=== PATIENT | female | born 1985 | race Caucasian/White ===

== ENCOUNTER 2020-02-09 17:12 | Emergency (ER) | payer SELFPAY ==
[2020-02-09] VITALS (7 sets, daily range): BP systolic 107–127; BP diastolic 54–92; PULSE 68–81; RESP 16–24; TEMP 36.8; O2SAT 93–97; BMI 31.1
--- NOTE | 2020-02-09 17:23 | XR_ITS ---
WS: [id number] Portable AP upright chest, 02/09/2020 Clinical Data: cp Comparison: Portable chest, 06/16/2018. Findings: No nodules, masses or effusions are seen. The heart is normal. The pulmonary vascularity is not increased. No pneumonia or pneumothorax is seen. There is minimal atelectasis over the surface o f the left diaphragm. XR/XR chest 1V portable [id number] Impression: Negative for acute cardiopulmonary disease.
--- NOTE | 2020-02-09 17:24 | ECG_ITS ---
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 Measurements Intervals [place] Rate: 80 P: 72 MD: 177 QRS: 66 QRSD: 80 T: 50 QT: 382 QTc: 441 Interpretive Statements SINUS RHYTHM No previous ECG available for comparison Electronically Signed On 02-09-2020 21:40:18 CDT by Delma Edwards M.D. [id number]
[2020-02-09 18:57] LABS: Basophils # 0.1 10^3/uL (0.0-0.1); Basophils % 0.6 %; Eosinophils # 0.6 10^3/uL (0.0-0.8); Hematocrit 40.5 % (37.0-47.0); Hemoglobin 13.7 g/dL (11.5-15.3); Lymphocytes # 2.9 10^3/uL (0.8-4.8); Lymphocytes % 25.2 %; Mean Corpuscular HGB Conc 33.8 g/dL (30.0-36.0); Mean Corpuscular Hemoglobin 30.2 pg (28.0-34.0); Mean Corpuscular Volume 89.4 fL (81-99); Mean Platelet Volume 8.6 fL (7.4-10.4); Monocytes # 0.8 10^3/uL (0.2-0.9); Neutrophils # 7.01 10^3/uL (1.8-7.7); Neutrophils % 61.8 %; Nucleated Red Blood Cells % 0 %; Platelet Count 493 10^3/cmm (130-400); Red Blood Count 4.53 10^6/uL (4.1-5.3); Red Cell Distribution Width 12.3 % (12.1-15.1); White Blood Count 11.3 10^3/uL (4.0-10.0)
--- NOTE | 2020-02-09 18:59 | ED_ITS ---
HPI - General Adult General: Chief complaint: General Medical Stated complaint: Pain in lungs/[facility] suspected blood clot Time Seen by Provider: 02/09/20 18:17 Source: patient Mode of arrival: ambulatory Limitations: no limitations History of Present Illness: HPI narrative: Sara is a very nice 34-year-old female who comes in complaining of right back, flank and chest pain. Occasionally she states the pain goes into her lower abdomen. She states it is much worse when she coughs, takes a deep breath or moves in certain positions. She denies anything similar to this in the past. Other than the increased pain with movement she is unaware of any exacerbating or alleviating factors. She did not report trying anything at home such as Tylenol Motrin for the disco mfort. She denies cough or fever. Denies any urinary symptoms such as urinary frequency, urgency or dysuria. She denies having any chest pain at rest but only when she coughs or takes a deep breath or moves but she states it does not take much movement at all to have her pain flare up. Associated symptoms: Reports chest pain; Deny confusion, diaphoresis, dyspnea, headache(s), malaise, nausea, rash, palpitations, syncope or vomiting Review of Systems Const: Denies: fever(s), chills, body aches, fatigue, malaise or diaphoresis Eyes: Denies: change in vision, blurry vision, photophobia, eye discomfort, eye discharge, eye redness or yellow eyes ENMT: Denies: throat pain, odynophagia, hoarseness, swelling of lips/tongue, ear or mastoid pain, ear discharge, change in hearing or nasal discharge Card: Reports: chest pain; Denies: palpitations, irregular heart rhythm, edema, lightheadedness, syncope, pre-syncope, dyspnea on exertion or orthopnea Resp: Denies: dyspnea, productive cough, non-productive cough, wheezing, hemoptysis or chest congestion GI: Reports: abdominal pain; Denies: nausea, vomiting, hematemesis, coffee ground emesis, heartburn, diarrhea, constipation, GI cramping, hematochezia or melena : Denies: flank pain, dysuria, urinary frequency, urinary urgency or hematuria Musc: Denies: neck pain, back pain, extremity pain, extremity swelling, joint pain, joint swelling, joint redness, joint warmth or joint stiffness Skin/Breast: Denies: rash, pruritus, erythema, skin pain or skin tenderness Neuro: Denies: headache(s), numbness in extremities, weakness in extremities, sensory changes, lack of coordination, difficulty walking, dizziness, vertigo, confusion, Slurred speech present or seizure-like activity Bob/Lymph: Denies: easy bruising, easy bleeding, petechiae, purpura or enlar ged lymph nodes All/Imm: Denies: urticaria, throat swelling, tongue swelling, facial swelling or acute wheezing [facility] Female Reproductive History: Date of last menstrual period: 01/22/20 Physical Exam 2 Const: COMMON NORMALS: no acute distress, patient oriented x3, no limitations and alert GENERAL APPEARANCE: cooperative HENMT: COMMON NORMALS: normocephalic, atraumatic, external ears normal, EAC's normal and Normal external nose present HEAD & SCALP: normal to inspection, normocephalic and atraumatic FACE & SINUS: normal facial exam and face symmetric NOSE: Normal external nose present and Normal nares present EXTERNAL EAR: Yes external ears normal EXTERNAL AUDITORY CANAL: EAC's normal MOUTH: Normal oral and palatal mucosa present, lip normal and tongue normal Eye: COMMON NORMALS: Equal, round and reactive pupils present and conjunctivae normal GENERAL EYE: appearance normal, both eyes and all related structures ALIGNMENT: Yes alignment normal PERIORBITAL: periorbital findings normal EYELID: eyelids normal CONJUNCTIVA: Yes conjunctivae normal SCLERA: sclerae normal PUPIL: Yes Equal, round and reactive pupils present Neck/C-Spine: COMMON NORMALS: full ROM, no lymphadenopathy, supple, no meningeal signs and no JVD GENERAL: Yes normal visual inspection and Yes trachea midline Chest: COMMONS NORMALS: normal inspection of the chest and normal palpation of entire chest wall Resp: COMMON NORMALS: normal respiratory effort, No retractions, No use of accessory muscles and clear to auscultation bilaterally EFFORT & INSPECTION: Yes able to speak in complete sentences and Yes symmetric chest movement AUSCULTATION: clear to auscultation bilaterally, no crackles, no rales, no rhonchi and no wheezes Cardio: COMMON NORMALS: no JVD, regular rate, regular rhythm, S1 normal heart sound present and S2 normal heart sound present RATE: regular rate RHYTHM: regular rhythm HEART SOUNDS: S1 normal heart sound present, S2 normal heart sound present, no click, no gallops, no murmurs and no rubs GI: COMMON NORMALS: Soft to palpation and No hepatosplenomegaly present PALPATION: Yes Soft to palpation, Yes Tenderness to palpation present (GI) Det ails: RUQ (Mild without rebound or guarding.), No Guarding due to palpation present (GI), No Rigid due to palpation, Yes No hepatosplenomegaly present, No Hernia present, No Palpable mass present and No Pulsatile mass present : COMMON NORMALS: Yes no CVA tenderness BLADDER/KIDNEY EXAM: Yes no CVA tenderness EXTERNAL FEMALE EXAM: No Hernia present Back/Pelvis: COMMON NORMALS: no CVA tenderness, thoracic and lumbar spine normal to inspection, no thoracic nor lumbar tenderness and thoraco-lumbar ROM normal Extremity: COMMON NORMALS: normal to inspection, full ROM, capillary refill normal, no joint enlargement, no clubbing, cyanosis or edema and no calf tenderness Neuro: COMMON NORMALS: patient oriented x3, CN's II-XII intact bilaterally, moves all extremities, no focal motor deficits and no sensory deficits noted SENSORIUM/ORIENTATION: Yes alert MENINGEAL SIGNS: Yes no meningeal signs SPEECH: speech normal Psych: COMMON NORMALS: mental status grossly normal, Normal thought process present, cooperative, normal affect, speech normal and activity/motor behavior normal SPEECH: Yes normal speech THOUGHT PROCESS: Normal thought process present Skin: COMMON NORMALS: no rashes or lesions noted, turgor normal, no jaundice, no petechiae and no mottling GENERAL SKIN EXAM: no rashes or lesions noted and turgor normal Course Vital Signs: Vital signs: Vital Signs Temperature 98.2 F 02/09/20 17:18 Pulse Rate 79 02/09/20 23:10 Respiratory Rate 20 H 02/09/20 23:10 Blood Pressure 107/54 02/09/20 23:10 Pulse Oximetry 93 02/09/20 20:18 MDM - General Adult 2 MDM Narrative: Medical decision making narrative: 2208 -Sara is feeling better and would like to go home. She does not want to stay for the repeat troponin test to rule out acute coronary syndrome. Clinically this appears unlikely as the patient only has sharp intermittent pain with coughing or deep breathing or when she moves. With a nurse to technical sales support specialist me I evaluate the patient's chest I see no evidence of shingles lesions. CT scan shows possible pneumonitis but the patient is a rapid COVID negative. I will place her on covert precautions and send a more specific PTC test. Patient understands to keep her self quarantine until the results of this test. I will treat her with Zithromax and Omnicef for community-acquired pneumonia but the patient is aware that this could be viral and she may need to return if worse. Lab Data: Attestation: I reviewed the patient's lab results. Labs: Lab Results 02/09/20 02/09/20 02/09/20 Range/Units 18:32 18:32 18:32 WBC 11.3 H (4.0-10.0) 10^3/ uL RBC 4.53 (4.1-5.3) 10^6/u L Hgb 13.7 (11.5-15.3) g/dL Hct 40.5 (37.0-47.0) % MCV 89.4 (81-99) fL MCH 30.2 (28.0-34.0) pg MCHC 33.8 (30.0-36.0) g/dL RDW 12.3 (12.1-15.1) % Plt Count 493 H (130-400) 10^3/c mm MPV 8.6 (7.4-10.4) fL Neut % (Auto) 61.8 % Lymph % (Auto) 25.2 % [place] % (Auto) 7.0 % Eos % (Auto) 5.0 % Baso % (Auto) 0.6 % Neut # (Auto) 7.01 (1.8-7.7) 10^3/u L Lymph # (Auto) 2.9 (0.8-4.8) 10^3/u L [place] # (Auto) 0.8 (0.2-0.9) 10^3/u L Eos # (Auto) 0.6 (0.0-0.8) 10^3/u L Baso # (Auto) 0.1 (0.0-0.1) 10^3/u L Nucleated RBC % (a uto) 0 % Nucleated RBCs # 0.0 /100WBC D-Dimer <= 0.27 (0-0.59) ug/mIFE U Sodium 136 (136-145) mmol/L Potassium 3.9 (3.5-5.1) mmol/L Chloride 101 (98-107) mmol/L Carbon Dioxide 24 (22-29) mmol/L Anion Gap 14.9 (5-19) BUN 5 L (6-20) mg/dL Creatinine 0.5 (0.5-0.9) mg/dL GFR Calculation 141.2 H (90-130) mL/min Glucose 90 (65-115) mg/dL Calculated Osmolal ity 279 L (285-295) mOsm/k g Calcium 9.4 (8.5-10.5) mg/dL Total Bilirubin 0.3 (0.15-1.2) mg/dL AST 18 (0-32) U/L ALT 17 (0-33) U/L Alkaline Phosphata se 85 (35-105) IU/L Troponin T Baselin e (0-10) ng/L Troponin T [address] [place] (0-10) ng/L Delta Troponin T (0-10) ABS# NT-Pro-B Natriuret Pep 43 (0-125) pg/mL Total Protein 6.5 L (6.6-8.7) g/dL Albumin 4.1 (3.5-5.2) g/dL Globulin 2.4 (1.3-4.6) g/dL HCG, Qual (Negative) Urine Color (Yellow) Urine Appearance (CLEAR) Urine pH (5-7) Ur Specific Gravit y (1.005-1.030) Urine Protein (Negative) Urine Glucose (UA) (Normal) Urine Ketones (Negative) Urine Blood (Negative) Urine Nitrate (Negative) Urine Bilirubin (Negative) Urine Urobilinogen (Negative) mg/dL Ur Leukocyte Cherry ase (Negative) Influenza Type A A g (Negative) Influenza Type B A g (Negative) SARS-CoV-2 Ag (Rap id) (Negative) 02/09/20 02/09/20 02/09/20 Range/Units 18:32 18:32 20:40 WBC (4.0-10.0) 10^3/ uL RBC (4.1-5.3) 10^6/u L Hgb (11.5-15.3) g/dL Hct (37.0-47.0) % MCV (81-99) fL MCH (28.0-34.0) pg MCHC (30.0-36.0) g/dL RDW (12.1-15.1) % Plt Count (130-400) 10^3/c mm MPV (7.4-10.4) fL Neut % (Auto) % Lymph % (Auto) % [place] % (Auto) % Eos % (Auto) % Baso % (Auto) % Neut # (Auto) (1.8-7.7) 10^3/u L Lymph # (Auto) (0.8-4.8) 10^3/u L [place] # (Auto) (0.2-0.9) 10^3/u L Eos # (Auto) (0.0-0.8) 10^3/u L Baso # (Auto) (0.0-0.1) 10^3/u L Nucleated RBC % (a uto) % Nucleated RBCs # /100WBC D-Dimer (0-0.59) ug/mIFE U Sodium (136-145) mmol/L Potassium (3.5-5.1) mmol/L Chloride (98-107) mmol/L Carbon Dioxide (22-29) mmol/L Anion Gap (5-19) BUN (6-20) mg/dL Creatinine (0.5-0.9) mg/dL GFR Calculation (90-130) mL/min Glucose (65-115) mg/dL Calculated Osmolal ity (285-295) mOsm/k g Calcium (8.5-10.5) mg/dL Total Bilirubin (0.15-1.2) mg/dL AST (0-32) U/L ALT (0-33) U/L Alkaline Phosphata se (35-105) IU/L Troponin T Baselin e 6 (0-10) ng/L Troponin T [address] [place] 6.00 (0-10) ng/L Delta Troponin T 0 (0-10) ABS# NT-Pro-B Natriuret Pep (0-125) pg/mL Total Protein (6.6-8.7) g/dL Albumin (3.5-5.2) g/dL Globulin (1.3-4.6) g/dL HCG, Qual Negative (Negative) Urine Color (Yellow) Urine Appearance (CLEAR) Urine pH (5-7) Ur Specific Gravit y (1.005-1.030) Urine Protein (Negative) Urine Glucose (UA) (Normal) Urine Ketones (Negative) Urine Blood (Negative) Urine Nitrate (Negative) Urine Bilirubin (Negative) Urine Urobilinogen (Negative) mg/dL Ur Leukocyte Cherry ase (Negative) Influenza Type A A g (Negative) Influenza Type B A g (Negative) SARS-CoV-2 Ag (Rap id) (Negative) 02/09/20 02/09/20 02/09/20 Range/Units 20:47 21:18 21:18 WBC (4.0-10.0) 10^3/ uL RBC (4.1-5.3) 10^6/u L Hgb (11.5-15.3) g/dL Hct (37.0-47.0) % MCV (81-99) fL MCH (28.0-34.0) pg MCHC (30.0-36.0) g/dL RDW (12.1-15.1) % Plt Count (130-400) 10^3/c mm MPV (7.4-10.4) fL Neut % (Auto) % Lymph % (Auto) % [place] % (Auto) % Eos % (Auto) % Baso % (Auto) % Neut # (Auto) (1.8-7.7) 10^3/u L Lymph # (Auto) (0.8-4.8) 10^3/u L [place] # (Auto) (0.2-0.9) 10^3/u L Eos # (Auto) (0.0-0.8) 10^3/u L Baso # (Auto) (0.0-0.1) 10^3/u L Nucleated RBC % (a uto) % Nucleated RBCs # /100WBC D-Dimer (0-0.59) ug/mIFE U Sodium (136-145) mmol/L Potassium (3.5-5.1) mmol/L Chloride (98-107) mmol/L Carbon Dioxide (22-29) mmol/L Anion Gap (5-19) BUN (6-20) mg/dL Creatinine (0.5-0.9) mg/dL GFR Calculation (90-130) mL/min Glucose (65-115) mg/dL Calculated Osmolal ity (285-295) mOsm/k g Calcium (8.5-10.5) mg/dL Total Bilirubin (0.15-1.2) mg/dL AST (0-32) U/L ALT (0-33) U/L Alkaline Phosphata se (35-105) IU/L Troponin T Baselin e (0-10) ng/L Troponin T [address] [place] (0-10) ng/L Delta Troponin T (0-10) ABS# NT-Pro-B Natriuret Pep (0-125) pg/mL Total Protein (6.6-8.7) g/dL Albumin (3.5-5.2) g/dL Globulin (1.3-4.6) g/dL HCG, Qual (Negative) Urine Color Yellow (Yellow) Urine Appearance Clear (CLEAR) Urine pH 6 (5-7) Ur Specific Gravit y 1.010 (1.005-1.030) Urine Protein Neg (Negative) Urine Glucose (UA) Norm (Normal) Urine Ketones Negative (Negative) Urine Blood Neg (Negative) Urine Nitrate Negative (Negative) Urine Bilirubin Neg (Negative) Urine Urobilinogen Norm (Negative) mg/dL Ur Leukocyte Cherry ase Negative (Negative) Influenza Type A A g Negative (Negative) Influenza Type B A g Negative (Negative) SARS-CoV-2 Ag (Rap id) Negative (Negative) Imaging Data^: CXR: Attestation: I personally reviewed and interpreted this imaging study as follows: My impression: No acute cardiopulmonary findings. CTA Chest With Abdomen Pelvis: Radiologist's impression: [place] [address] CT Scan Report Signed Patient: Sara Schafer Unit #: [id number] : 1985 Age/Sex: 34 / F ADM Date: 02/09/20 Loc: ER Room/Bed: Attending Dr: Ordering Provider/Ordering MD: Randee Moss DO Date of Service: 02/09/20 Procedure(s): CT angio chest w abd pel w con Accession Number(s): [id number] Report Number: [id number] PROCEDURE INFORMATION: Exam: CT Angiography Chest With Contrast Exam date and time: 02/09/2020 7:19 PM Age: 34 years old Clinical indication: Nausea and vomiting; Abdominal pain; Angina; Chest pain TECHNIQUE: Imaging protocol: Computed tomographic angiography of the chest with intravenous contrast. 3D rendering (Not supervised by radiologist): MIP and/or 3D reconstructed images were created by the technologist. Radiation optimization: All CT scans at this facility use at least one of these dose optimization techniques: automated exposure control; mA and/or kV adjustment per patient size (includes targeted exams where dose is matched to clinical indication); or iterative reconstruction. Contrast material: OMNI 350; Contrast volume: 95 ml; Contrast route: INTRAVENOUS (IV); COMPARISON: CR XR chest 1V portable [id number] 02/09/2020 5:26 PM RADIATION DOSE METRICS: Total DLP (mGy-cm): 1765.81 FINDINGS: Pulmonary arteries: There is no pulmonary embolus. Aorta: Unremarkable. No aortic aneurysm. No aortic dissection. Lungs: There is mild ground-glass opacity in the dependent portion of the lungs compatible with mild pneumonitis versus atelectasis. There is a 3 mm nodule posterior right lung image 18. There is a 3 mm subpleural nodule left lung image 18. Pleural space: Unremarkable. No pneumothorax. No pleural effusion. Heart: Unremarkable. No cardiomegaly. No pericardial effusion. Lymph nodes: There is right axillary adenopathy with a lymph node measuring 1.3 cm in short axis image 76. There is mediastinal adenopathy including a right paratracheal lymph node measuring 1.3 cm in short axis image 158. There is a subcarinal lymph node measuring 1.3 cm in short axis. There is a right hilar lymph node measuring 1.5 cm in short axis image 206. There is a left hilar lymph node measuring 1.2 cm in short axis image 190. Bones/joints: Unremarkable. No acute fracture. Soft tissues: There is a 7 mm soft tissue nodule posterior left upper lobe image 11. IMPRESSION: 1. There is no pulmonary embolus. 2. Mediastinal, hilar and right axillary adenopathy is noted. 3. There is mild ground-glass opacity in the dependent portion of the lungs compatible with mild pneumonitis versus atelectasis. 4. Multiple soft tissue pulmonary nodules are noted measuring up to 7 mm in size.If the patient does not have known cancer, follow up should be based on clinical information because of the low risk of cancer in this age group. (Reference: Maria) REFERENCES: ludivina Bedolla al. Guidelines for Management of Incidental Pulmonary Nodules Detected on CT Images: From the Fleischner Society 2017. Radiology. 2017;284(1):228-243. PROCEDURE INFORMATION: Exam: CT Abdomen And Pelvis With Contrast Exam date and time: 02/09/2020 7:19 PM Age: 34 years old Clinical indication: Nausea and vomiting; Abdominal pain; Angina; Chest pain TECHNIQUE: Imaging protocol: Computed tomography of the abdomen and pelvis with intravenous contrast. Radiation optimization: All CT scans at this facility use at least one of these dose optimization techniques: automated exposure control; mA and/or kV adjustment per patient size (includes targeted exams where dose is matched to clinical indication); or iterative reconstruction. Contrast material: OMNI 350; Contrast volume: 95 ml; Contrast route: INTRAVENOUS (IV); COMPARISON: CR XR chest 1V portable [id number] 02/09/2020 5:26 PM RADIATION DOSE METRICS: Total DLP (mGy-cm): 1765.81 FINDINGS: Liver: Unremarkable.No mass. Gallbladder and bile ducts: Normal. No calcified stones. No ductal dilation. Pancreas: Normal. No ductal dilation. Spleen: Normal. No splenomegaly. Adrenals: Normal. No mass. Kidneys and ureters: Normal. No hydronephrosis. Stomach and bowel: Unremarkable. No obstruction. No mucosal thickening. Appendix: No evidence of appendicitis. Intraperitoneal space: Unremarkable. No free air. No significant fluid collection. Vasculature: Unremarkable.No abdominal aortic aneurysm. Subcentimeter lymph nodes are noted. Lymph nodes: Unremarkable.No enlarged lymph nodes. Urinary bladder: Unremarkable as visualized. Reproductive: Unremarkable as visualized. Bones/joints: Unremarkable. No acute fracture. Soft tissues: Unremarkable. CT/CT angio chest w abd pel w con IMPRESSION: No acute findings. Radiation Dose CTDIVOL = (mGy): DLP = 1765.81 1765.81 (mGy-cm) Dictated By: Itzel Easley Signed By: Itzel Easley Signed Date/Time: 02/09/202106 DD/ 05 EKG Data^: EKG 1: Attestation: I personally reviewed and interpreted this EKG as follows: EKG interpretation date: 02/09/20 EKG interpretation time: 19:17 Interpretation: Normal sinus rhythm at 80 beats a minute, no blocks, normal intervals, nonspecific ST-T wave changes. Computer generated interpretation: Chest/Abdomen/Pelvis CT 02/09/20 19:10 IMPRESSION: No acute findings. Radiation Dose CTDIVOL = (mGy): DLP = 1765.81~1765.81 (mGy-cm) EKG 2: Attestation: I personally reviewed and interpreted this EKG as follows: EKG interpretation date: 02/09/20 EKG interpretation time: 21:14 Interpretation: Normal sinus rhythm at 60 beats a minute, no blocks, normal intervals, no acute ST-T wave changes. Computer generated interpretation: Chest/Abdomen/Pelvis CT 02/09/20 19:10 IMPRESSION: No acute findings. Radiation Dose CTDIVOL = (mGy): DLP = 1765.81~1765.81 (mGy-cm) Discharge Plan Discharge Patient Disposition: Home Clinical Impression: Pleurisy Pneumonia Qualifiers: Pneumonia type: due to unspecified organism Laterality: bilateral Lung location: lower lobe of lung Qualified Code(s): J18.9 - Pneumonia, unspecified organism Condition: Stable Prescriptions: New Zithromax Z-Garrick 250 mg tablet See Rx Instructions .ROUTE .COMPLEX Qty: 6 RF: 0 Erie 5-325 mg tablet 1 tab PO Q6H PRN (Reason: pain) 5 Days Qty: 10 RF: 0 Tessalon Perles 100 mg capsule 200 mg PO TID PRN (Reason: cough) Qty: 60 RF: 0 cefdinir 300 mg capsule 300 mg PO Q12H 10 Days Qty: 20 RF: 0 Discharge Orders: Discharge Order (Routine); Ordered 02/09/20 Ordered By: Randee Moss Referrals: Jailene Gaviria FNP [Primary Care Provider] - 1-3 days Discharge Diet: Advance as tolerated Discharge Activity: Increase activity as tolerated Patient Instructions: Pleurisy (ED), Viral Pneumonia (ED), Bacterial Pneumonia (ED), Pneumonia (ED) Activity Restrictions/Additional Instructions: Please return to the ER immediately for any of the signs or symptoms listed on your discharge instruction sheets, worsening/changing of your symptoms, you are not getting better as quickly as expected, or for ANY other cause or concerns. You have declined to stay for the further evaluation and care of a possible heart problem. Of course any heart problem can be life-threatening so if you change your mind or your symptoms change or worsen in any way please return to the ER for recheck. Take your antibiotics as I have prescribed and we have sent a second COVID test so keep at home and quarantined until you are called with th e results of this test. 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
[2020-02-09] MEDS: morphine 4 mg/mL SDV 1 mL IVP (19:10)
--- NOTE | 2020-02-09 19:10 | CTR_ITS ---
PROCEDURE INFORMATION: Exam: CT Angiography Chest With Contrast Exam date and time: 02/09/2020 7:19 PM Age: 34 years old Clinical indication: Nausea and vomiting; Abdominal pain; Angina; Chest pain TECHNIQUE: Imaging protocol: Computed tomographic angiography of the chest with intravenous contrast. 3D rendering (Not supervised by radiologist): MIP and/or 3D reconstructed images were created by the technologist. Radiation optimization: All CT scans at this facility use at least one of these dose optimization techniques: automated exposure control; mA and/or kV adjustment per patient size (includes targeted exams where dose is matched to clinical indication); or iterative reconstruction. Contrast material: OMNI 350; Contrast volume: 95 ml; Contrast route: INTRAVENOUS (IV); COMPARISON: CR XR chest 1V portable [id number] 02/09/2020 5:26 PM RADIATION DOSE METRICS: Total DLP (mGy-cm): 1765.81 FINDINGS: Pulmonary arteries: There is no pulmonary embolus. Aorta: Unremarkable. No aortic aneurysm. No aortic dissection. Lungs: There is mild ground-glass opacity in the dependent portion of the lungs compatible with mild pneumonitis versus atelectasis. There is a 3 mm nodule posterior right lung image 18. There is a 3 mm subpleural nodule left lung image 18. Pleural space: Unremarkable. No pneumothorax. No pleural effusion. Heart: Unremarkable. No cardiomegaly. No pericardial effusion. Lymph nodes: There is right axillary adenopathy with a lymph node measuring 1.3 cm in short axis image 76. There is mediastinal adenopathy including a right paratracheal lymph node measuring 1.3 cm in short axis image 158. There is a subcarinal lymph node measuring 1.3 cm in short axis. There is a right hilar lymph node measuring 1.5 cm in short axis image 206. There is a left hilar lymph node measuring 1.2 cm in short axis image 190. Bones/joints: Unremarkable. No acute fracture. Soft tissues: There is a 7 mm soft tissue nodule posterior left upper lobe image 11. IMPRESSION: 1. There is no pulmonary embolus. 2. Mediastinal, hilar and right axillary adenopathy is noted. 3. There is mild ground-glass opacity in the dependent portion of the lungs compatible with mild pneumonitis versus atelectasis. 4. Multiple soft tissue pulmonary nodules are noted measuring up to 7 mm in size.If the patient does not have known cancer, follow up should be based on clinical information because of the low risk of cancer in this age group. (Reference: Maria) REFERENCES: ludivina Bedolla al. Guidelines for Management of Incidental Pulmonary Nodules Detected on CT Images: From the Fleischner Society 2017. Radiology. 2017;284(1):228-243. PROCEDURE INFORMATION: Exam: CT Abdomen And Pelvis With Contrast Exam date and time: 02/09/2020 7:19 PM Age: 34 years old Clinical indication: Nausea and vomiting; Abdominal pain; Angina; Chest pain TECHNIQUE: Imaging protocol: Computed tomography of the abdomen and pelvis with intravenous contrast. Radiation optimization: All CT scans at this facility use at least one of these dose optimization techniques: automated exposure control; mA and/or kV adjustment per patient size (includes targeted exams where dose is matched to clinical indication); or iterative reconstruction. Contrast material: OMNI 350; Contrast volume: 95 ml; Contrast route: INTRAVENOUS (IV); COMPARISON: CR XR chest 1V portable [id number] 02/09/2020 5:26 PM RADIATION DOSE METRICS: Total DLP (mGy-cm): 1765.81 FINDINGS: Liver: Unremarkable.No mass. Gallbladder and bile ducts: Normal. No calcified stones. No ductal dilation. Pancreas: Normal. No ductal dilation. Spleen: Normal. No splenomegaly. Adrenals: Normal. No mass. Kidneys and ureters: Normal. No hydronephrosis. Stomach and bowel: Unremarkable. No obstruction. No mucosal thickening. Appendix: No evidence of appendicitis. Intraperitoneal space: Unremarkable. No free air. No significant fluid collection. Vasculature: Unremarkable.No abdominal aortic aneurysm. Subcentimeter lymph nodes are noted. Lymph nodes: Unremarkable.No enlarged lymph nodes. Urinary bladder: Unremarkable as visualized. Reproductive: Unremarkable as visualized. Bones/joints: Unremarkable. No acute fracture. Soft tissues: Unremarkable. CT/CT angio chest w abd pel w con IMPRESSION: No acute findings. Radiation Dose CTDIVOL = (mGy): DLP = 1765.81~1765.81 (mGy-cm)
[2020-02-09] MEDS: ondansetron 2 mg/ML SDV 2 mL 4 MG IVP (19:11)
[2020-02-09] MEDS: sodium chloride 0.9% 1,000 ML 999 ML IV (19:11)
--- NOTE | 2020-02-09 19:24 | ECG_ITS ---
[facility] Test Date: 2020-02-09 Pat Name: Sara Schafer Department: Room: Gender: Female Letterer: : 1985 Requested By: Barbara Morel Order Number: [id number] Kade MD: Delma Edwards M.D. Measurements Intervals [place] Rate: 60 P: 56 MA: 174 QRS: 64 QRSD: 89 T: 52 QT: 431 QTc: 431 Interpretive Statements SINUS RHYTHM Compared to ECG 02/09/2020 19:17:02 No significant changes Electronically Signed On 02-09-2020 21:44:47 CDT by Delma Edwards M.D. [id number]
[2020-02-09 19:25] LABS: D Dimer <= 0.27 ug/mIFEU (0-0.59)
[2020-02-09 19:29] LABS: HCG, Serum Qual Negative (Negative)
[2020-02-09 19:34] LABS: Troponin(5th) Baseline 6 ng/L (0-10)
[2020-02-09 19:42] LABS: Alanine Aminotransferase 17 U/L (0-33); Albumin Level 4.1 g/dL (3.5-5.2); Alkaline Phosphatase 85 IU/L (35-105); Anion Gap 14.9 (5-19); Aspartate Amino Transferase 18 U/L (0-32); Blood Urea Nitrogen 5 mg/dL (6-20); Calcium 9.4 mg/dL (8.5-10.5); Carbon Dioxide 24 mmol/L (22-29); Chloride 101 mmol/L (98-107); Globulin 2.4 g/dL (1.3-4.6); Glomerular Filtration Rate 141.2 mL/min (90-130); Glucose 90 mg/dL (65-115); NT Pro B Type Natriuretic Pept 43 pg/mL (0-125); Osmolality Calculated 279 mOsm/kg (285-295); Potassium 3.9 mmol/L (3.5-5.1); Sodium 136 mmol/L (136-145); Total Bilirubin 0.3 mg/dL (0.15-1.2); Total Protein 6.5 g/dL (6.6-8.7)
[2020-02-09] MEDS: HYDROmorphone 1 mg/mL INJ 1 mL IVP (20:03)
[2020-02-09] MEDS: iohexol 350 mg/mL 100 mL Btl IV (20:31)
[2020-02-09 21:05] LABS: Troponin 5 2HR Delta 0 ABS# (0-10)
[2020-02-09 21:09] LABS: Add Urine Microscopic? NO
[2020-02-09 21:19] LABS: Bilirubin Urine Neg (Negative); Blood Urine Neg (Negative); Glucose Urine UA Norm (Normal); Ketones Urine Negative (Negative); Leukocyte Esterase Urine Negative (Negative); Nitrate Urine Negative (Negative); Protein Urine Neg (Negative); Urine Appearance Clear (CLEAR); Urine Color Yellow (Yellow); Urobilinogen Urine Norm (Negative); pH Urine 6 (5-7)
[2020-02-09 21:49] LABS: Influenza A by IFA Negative (Negative); Influenza B by IFA Negative (Negative)
[2020-02-09 22:05] LABS: SARS Covid-2 Antigen Negative (Negative)
[2020-02-09] MEDS: cefTRIAXone 1,000 MG in sodium chloride 0.9% (plus) 50 ML 100 MG IV (22:30)
[2020-02-09] MEDS: azithromycin 250 mg Tablet 500 MG PO (22:31)
[2020-02-09] MEDS: HYDROcodone-acetaminophen 5-325 mg Tablet 1 TAB PO (23:09)
[2020-02-11 16:07] LABS: Coronavirus Lab Test PTC Negative
--- NOTE | 2020-02-11 16:26 | PC.NURSE ---
Pt called and notified of negative COVID result.
== END 2020-02-09 23:17 | disposition home or self-care (01) ==
PROVIDERS: Emergency Medicine; Emergency Provider Emergency Medicine; PCP Nurse Practitioner Family
DX: J18.9 Pneumonia, unspecified organism (principal); R09.1 Pleurisy
CPT/HCPCS: 12345; 71045; 71275; 74177; 80053; 81003; 83880; 84484; 84703; 85025; 85378; 87426; 87635; 87804; 93005; 96365; 96375; 99283; 99284; J0131; J0696; J1170; J2270; J2405; J7030; Q0144; Q9967

== ENCOUNTER 2020-04-20 18:59 | Emergency (ER) | payer MEDICAID, SELFPAY ==
[2020-04-20 19:02] VITALS: BP 158/108; PULSE 79; RESP 16; TEMP 36.9; O2SAT 99; BMI 31.3
[2020-04-20 19:06] VITALS: BP 154/106; RESP 18; O2SAT 98
--- NOTE | 2020-04-20 19:30 | ED_ITS ---
HPI - Extremity Problem General: Chief complaint: Extremity Injury, Upper Stated complaint: knot/pain/swelling in left wrist Time Seen by Provider: 04/20/20 19:19 History of Present Illness: HPI Narrative: Patient planes about right wrist pain that radiates her arm and also numbness in her fingers. 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 Denies any injury. 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) Review of Systems Const: Denies: fever(s) or chills Musc: Reports: extremity pain (Right hand going up right arm left wrist hurts); Denies: limited range of motion Psych: Denies: anxiety or depression PFSH ED PFSH: Family History Other Cancer Diabetes Hyperlipidemia Social History (Updated 04/20/20 @ 16:05 by Flakita Roy LPN) Smoking and tobacco status: current every day smoker Alcohol intake: never Adopted: No Female Reproductive History: Date of last menstrual period: 04/17/20 Physical Exam Const: COMMON NORMALS: no acute distress Neuro: SENSORY EXAM: Yes other (Positive Phalen's and Tinel sign right wrist) Psych: COMMON NORMALS: mental status grossly normal Course Vital Signs: Vital signs: Vital Signs Temperature 98.4 F 04/20/20 19:02 Pulse Rate 79 04/20/20 19:02 Respiratory Rate 16 04/20/20 19:02 Blood Pressure 158/108 04/20/20 19:02 Pulse Oximetry 99 04/20/20 19:02 Discharge Plan Discharge Patient Disposition: Home Clinical Impression: Acute carpal tunnel syndrome of right wrist Condition: Stable Prescriptions: New Medrol (Garrick) 4 mg tablets,dose pack See Rx Instructions .ROUTE .COMPLEX Qty: 21 RF: 0 Voltaren 1 % gel 4 g topical QID Qty: 100 RF: 0 Discharge Orders: Discharge ED (Routine); Ordered 04/20/20 Ordered By: García Bryan Referrals: Jailene Gaviria FNP [Primary Care Provider] - Discharge Diet: Usual diet Discharge Activity: Increase activity as tolerated Patient Instructions: Carpal Tunnel Syndrome (ED) Activity Restrictions/Additional Instructions: Follow-up with medical provider as directed. Take medications as prescribed. Return to the ER or your medical provider if condition worsens. Please read and understand discharge instructions. If any questions ask please. Wear splints at night especially and possibly work. He can pick the splints up at local retail or like [employer] or [employer]. Coding Level of Care Code ED Federal Mediator for Ann Vanessa
[2020-04-20] MEDS: ketorolac 60 mg/2 mL INJ IM (19:51)
[2020-04-20] MEDS: methylPREDNISolone (DEPO) 80 MG/ML INJ 1 mL IM (19:55)
[2020-04-20 20:19] VITALS: BP 156/101; PULSE 64; RESP 18; O2SAT 98
[2020-04-20 20:24] VITALS: PULSE 89
--- NOTE | 2020-04-20 20:24 | PC.NURSE ---
no change after Injections
== END 2020-04-20 20:19 | disposition home or self-care (01) ==
PROVIDERS: Emergency Provider Nurse Practitioner Family; PCP Nurse Practitioner Family
DX: G56.01 Carpal tunnel syndrome, right upper limb (principal); F17.210 Nicotine dependence, cigarettes, uncomplicated
CPT/HCPCS: 12345; 96372; 99281; 99283; J1040; J1885

== ENCOUNTER 2020-05-02 16:28 | Emergency (ER) | payer MEDICAID, SELFPAY ==
[2020-05-02 16:40] VITALS: BP 146/80; PULSE 84; RESP 16; TEMP 36.2; O2SAT 99; BMI 32.3
[2020-05-02 16:44] VITALS: BP 133/59; PULSE 98; RESP 16; TEMP 36.8; O2SAT 99
--- NOTE | 2020-05-02 17:39 | XR_ITS ---
WS: [id number] Exam: XR wrist RT min 3V* [id number] Date/Time of Exam: 05/02/2020 5:44 PM Reason For Exam: pain There are no fractures, soft tissue swelling, or unusual calcifications. The wrist shows normal bony alignment. There is no irregularity of the bony architecture. XR/XR wrist RT min 3V* [id number] IMPRESSION: Negative right wrist.
--- NOTE | 2020-05-02 17:47 | W.ED.EXTPRO ---
HPI - Extremity Problem General: Chief complaint: Extremity Problem,Nontraumatic Stated complaint: R hand pain Time Seen by Provider: 05/02/20 17:23 History of Present Illness: HPI Narrative: Patient sent here today by Dr. Arboleda's office for neurological testing for carpal tunnel syndrome. Said she saw Dr. Arboleda today he said come here. States that her hand continues to bother complains redness to the top of her hand is wearing a copper fit brace on her wrist. MD Complaint: extremity pain Onset (ago): week(s) Pain Consistency: constant Location: right Quality: aching Radiation: none Relieving factors: nothing Exacerbating factors: range of motion Associated symptoms: Reports no associated symptoms; Deny chest pain, fever(s) or rash Review of Systems Const: Denies: fever(s), chills or body aches Eyes: Denies: change in vision or blurry vision ENMT: Denies: throat pain or nasal congestion Card: Denies: chest pain or dyspnea on exertion Resp: Denies: dyspnea, productive cough or non-productive cough GI: Denies: abdominal pain, nausea or vomiting Musc: Reports: extremity pain Skin/Breast: Denies: rash Neuro: Denies: headache(s) Psych: Denies: anxiety or depression Bob/Lymph: Denies: easy bruising PFSH ED PFSH: Family History Other Cancer Diabetes Hyperlipidemia Social History (Updated 05/02/20 @ 16:44 by Cortez Landin RN) Smoking and tobacco status: current every day smoker cigarettes Packs smoked per day: 1 Alcohol intake: never Substance/Drug Use: current Substance/Drug use frequency: Special occassions/opportunity only Substance/Drug use type: Marijuana Adopted: No Female Reproductive History: Date of last menstrual period: 04/11/20 Physical Exam Const: COMMON NORMALS: no acute distress, average body habitus and patient oriented x3 HENMT: COMMON NORMALS: normocephalic HEAD & SCALP: normal to inspection and normocephalic FACE & SINUS: normal facial exam Eye: COMMON NORMALS: conjunctivae normal GENERAL EYE: appearance normal, both eyes and all related structures CONJUNCTIVA: Yes conjunctivae normal Neck/C-Spine: COMMON NORMALS: no JVD Chest: COMMONS NORMALS: normal inspection of the chest Resp: COMMON NORMALS: normal respiratory effort Cardio: COMMON NORMALS: no JVD, regular rate and regular rhythm RATE: regular rate RHYTHM: regular rhythm Extremity: COMMON NORMALS: normal to inspection and full ROM RIGHT UPPER EXTREMITY: Yes wrist (Tenderness right wrist positive Karina she does have redness to the dorsa) Neuro: COMMON NORMALS: patient oriented x3 Course Vital Signs: Vital signs: Vital Signs Temperature 98.2 F 05/02/20 16:44 Pulse Rate 98 05/02/20 16:44 Respiratory Rate 16 05/02/20 16:44 Blood Pressure 133/59 05/02/20 16:44 Pulse Oximetry 99 05/02/20 16:44 Discharge Plan Discharge Prescriptions: No Action Medrol (Garrick) 4 mg tablets,dose pack See Rx Instructions .ROUTE .COMPLEX Qty: 21 RF: 0 Voltaren 1 % gel 4 g topical QID Qty: 100 RF: 0 Coding Level of Care Code ED Optical Effects Line Up Person for Norag Rasheeda
[2020-05-02 18:16] LABS: Basophils % 0.5 %; Eosinophils # 0.4 10^3/uL (0.0-0.8); Eosinophils % 5.3 %; Hematocrit 38.4 % (37.0-47.0); Lymphocytes # 2.7 10^3/uL (0.8-4.8); Lymphocytes % 32.7 %; Mean Corpuscular HGB Conc 33.9 g/dL (30.0-36.0); Mean Corpuscular Hemoglobin 30.1 pg (28.0-34.0); Mean Corpuscular Volume 88.9 fL (81-99); Mean Platelet Volume 8.5 fL (7.4-10.4); Monocytes # 0.8 10^3/uL (0.2-0.9); Monocytes % 9.1 %; Neutrophils # 4.36 10^3/uL (1.8-7.7); Neutrophils % 52.2 %; Nucleated Red Blood Cells % 0 %; Platelet Count 402 10^3/cmm (130-400); Red Blood Count 4.32 10^6/uL (4.1-5.3); Red Cell Distribution Width 12.6 % (12.1-15.1); White Blood Count 8.4 10^3/uL (4.0-10.0)
[2020-05-02 18:26] VITALS: BP 120/77; PULSE 80; RESP 14; O2SAT 96
== END 2020-05-02 18:45 | disposition home or self-care (01) ==
PROVIDERS: Emergency Provider Nurse Practitioner Family; PCP Nurse Practitioner Family
DX: M79.641 Pain in right hand (principal); F17.210 Nicotine dependence, cigarettes, uncomplicated
CPT/HCPCS: 12345; 73110; 85025; 99281; 99283

== ENCOUNTER → 2020-05-15 14:38 | Outpatient (BNVA) | payer MEDICAID, SELFPAY | PROVIDERS: PCP Nurse Practitioner Family; Visit Provider Specialist | DX: R20.0 Anesthesia of skin (principal); R20.2 Paresthesia of skin; M79.641 Pain in right hand; F17.210 Nicotine dependence, cigarettes, uncomplicated | CPT/HCPCS: 95908; 95910 ==

== ENCOUNTER 2020-05-23 14:28 | Outpatient (CLI) | payer MEDICAID, SELFPAY ==
[2020-05-23 15:39] LABS: Alanine Aminotransferase 11 U/L (0-33); Albumin Level 4.1 g/dL (3.5-5.2); Alkaline Phosphatase 94 IU/L (35-105); Anion Gap 12.6 (5-19); Aspartate Amino Transferase 14 U/L (0-32); Blood Urea Nitrogen 9 mg/dL (6-20); C Reactive Protein 1.2 mg/L (0.0-4.9); Calcium 9.2 mg/dL (8.5-10.5); Carbon Dioxide 26 mmol/L (22-29); Chloride 102 mmol/L (98-107); Globulin 2.5 g/dL (1.3-4.6); Glomerular Filtration Rate 181.6 mL/min (90-130); Glucose 119 mg/dL (65-115); Osmolality Calculated 284 mOsm/kg (285-295); Potassium 3.6 mmol/L (3.5-5.1); Sodium 137 mmol/L (136-145); Total Bilirubin 0.3 mg/dL (0.15-1.2); Total Protein 6.6 g/dL (6.6-8.7)
[2020-05-23 16:52] LABS: Erythrocyte Sedimentation Rate 8 mm/hr (0-15)
[2020-05-24 13:43] LABS: COMPLEMENT COMPONENT C3C 99 mg/dL (83-193); COMPLEMENT COMPONENT C4C 24 mg/dL (15-57)
[2020-05-24 14:14] LABS: Cyclic Citrullinated Peptide >250 UNITS
[2020-05-25 13:44] LABS: COMPLEMENT, TOTAL (CH50) >60 U/mL (31-60)
[2020-05-28 13:43] LABS: CENTROMERE B ANTIBODY <1.0 NEG AI (<1.0 NEG); JO-1 ANTIBODY <1.0 NEG AI (<1.0 NEG); RNP ANTIBODY <1.0 NEG AI (<1.0 NEG); SCL-70 ANTIBODY <1.0 NEG AI (<1.0 NEG); SJOGREN'S ANTIBODY (SS-A) <1.0 NEG AI (<1.0 NEG); SM ANTIBODY <1.0 NEG AI (<1.0 NEG); SS-B <1.0 NEG AI (<1.0 NEG)
[2020-05-28 14:49] LABS: ANA SCREEN, IFA NEGATIVE (NEGATIVE)
[2020-05-29 15:38] LABS: THYROID PEROXIDASE ANTIBODIES <1 IU/mL (<9)
[2020-05-31 01:13] LABS: DNA AB (DS) CRITHIDIA,IFA NEGATIVE (NEGATIVE)
== END 2020-05-23 14:29 | disposition home or self-care (01) ==
PROVIDERS: PCP Nurse Practitioner Family; Visit Provider Orthopaedic Surgery
DX: R20.0 Anesthesia of skin (principal); M25.539 Pain in unspecified wrist
CPT/HCPCS: 36415; 80053; 85651; 86140; 86431

== ENCOUNTER → 2020-07-17 11:07 | Outpatient (BNVA) | payer MEDICAID, SELFPAY | PROVIDERS: PCP Nurse Practitioner Family; Visit Provider Internal Medicine Rheumatology | DX: M05.79 Rheumatoid arthritis with rheumatoid factor of multiple sites without organ or systems involvement (principal); Z79.899 Other long term (current) drug therapy; Z11.59 Encounter for screening for other viral diseases; Z11.1 Encounter for screening for respiratory tuberculosis; F17.210 Nicotine dependence, cigarettes, uncomplicated | CPT/HCPCS: 99204 ==

== ENCOUNTER 2020-08-20 11:47 | Outpatient (CLI) | payer MEDICAID, SELFPAY ==
--- NOTE | 2020-08-20 11:54 | XRR_ITS ---
PROCEDURE INFORMATION: Exam: XR Left Hand Exam date and time: 08/20/2020 12:25 PM Age: 35 years old Clinical indication: Condition or disease; Arthritis; Rheumatoid; Hand; Bilateral; Additional info: M06.9 - rheumatoid arthritis, unspecified TECHNIQUE: Imaging protocol: XR Left hand. Views: 3 or more views. COMPARISON: No relevant prior studies available. FINDINGS: Bones/joints: Osseous structures of the hand are without an acute process. Distal radioulnar joint and radiocarpal joints grossly normal. Carpus without fracture. Metacarpals and phalangeal without fracture or dislocation. No erosive changes or periarticular calcifications. no marginal erosions. No periarticular osteopenia. No erosive changes. No evidence of gout. No soft tissue calcifications. Soft tissues: See Bones/joints finding. XR/XR hand LT min 3V* [id number] IMPRESSION: Normal hand. No fracture. No foreign body. No evidence of rheumatoid
--- NOTE | 2020-08-20 11:54 | XRR_ITS ---
PROCEDURE INFORMATION: Exam: XR Right Hand Exam date and time: 08/20/2020 12:25 PM Age: 35 years old Clinical indication: Condition or disease; Arthritis; Rheumatoid; Hand; Bilateral; Additional info: M06.9 - rheumatoid arthritis, unspecified TECHNIQUE: Imaging protocol: XR Right hand. Views: 3 or more views. COMPARISON: CR XR wrist RT min 3V* [id number] 05/02/2020 5:42 PM FINDINGS: Bones/joints: osseous structures of the hand are without an acute process. Distal radioulnar joint and radiocarpal joints grossly normal. Carpus without fracture. Metacarpals and phalangeal without fracture or dislocation. No erosive changes or periarticular calcifications. no marginal erosions. No periarticular osteopenia. No erosive changes. No evidence of gout. No soft tissue calcifications. Soft tissues: See Bones/joints finding. XR/XR hand RT min 3V* [id number] IMPRESSION: Unremarkable
--- NOTE | 2020-08-20 11:54 | XRR_ITS ---
PROCEDURE INFORMATION: Exam: XR Chest Exam date and time: 08/20/2020 11:54 AM Age: 35 years old Clinical indication: Condition or disease; Other: Rheumatoid arthritis, unspecified; Additional info: M06.9 - rheumatoid arthritis, unspecified TECHNIQUE: Imaging protocol: XR of the chest. Views: 2 views. COMPARISON: CR XR chest 1V portable [id number] 02/09/2020 5:26 PM FINDINGS: Lungs: Unremarkable. No consolidation. Pleural spaces: Unremarkable. No pleural effusion. No pneumothorax. Heart/Mediastinum: Unremarkable. No cardiomegaly. Bones/joints: Unremarkable. XR/XR chest 2V* [id number] IMPRESSION: No acute findings. No chronic findings. No fibrotic changes.
[2020-08-20 12:13] LABS: Basophils # 0.1 10^3/uL (0.0-0.1); Basophils % 0.8 %; Eosinophils # 0.9 10^3/uL (0.0-0.8); Eosinophils % 11.4 %; Hematocrit 39.9 % (37.0-47.0); Hemoglobin 13.7 g/dL (11.5-15.3); Lymphocytes # 2.4 10^3/uL (0.8-4.8); Lymphocytes % 30.2 %; Mean Corpuscular HGB Conc 34.3 g/dL (30.0-36.0); Mean Corpuscular Hemoglobin 30.5 pg (28.0-34.0); Mean Corpuscular Volume 88.9 fL (81-99); Mean Platelet Volume 8.3 fL (7.4-10.4); Monocytes # 0.6 10^3/uL (0.2-0.9); Monocytes % 6.9 %; Neutrophils # 4.04 10^3/uL (1.8-7.7); Neutrophils % 50.4 %; Nucleated Red Blood Cells % 0 %; Platelet Count 431 10^3/cmm (130-400); Red Blood Count 4.49 10^6/uL (4.1-5.3)
[2020-08-20 12:30] LABS: Alanine Aminotransferase 12 U/L (0-33); Albumin Level 4.2 g/dL (3.5-5.2); Alkaline Phosphatase 85 IU/L (35-105); Aspartate Amino Transferase 14 U/L (0-32); C Reactive Protein 2.1 mg/L (0.0-4.9); Globulin 2.1 g/dL (1.3-4.6); Glomerular Filtration Rate 181.6 mL/min (90-130); Total Bilirubin 0.3 mg/dL (0.15-1.2); Total Protein 6.3 g/dL (6.6-8.7)
[2020-08-20 13:12] LABS: Hepatitis B Core AB, Total Non-Reactive (Nonreactive); Hepatitis B Surface Antigen Non-Reactive (Nonreactive); Hepatitis C Virus Antibody Non-Reactive (Nonreactive)
[2020-08-22 14:28] LABS: Quantiferon Mitogen 7.35 IU/mL; Quantiferon Nil 0.03 IU/mL; Quantiferon Plus TB1 0.34 IU/mL; Quantiferon Plus TB2 0.39 IU/mL; Quantiferon TB Gold POSITIVE (NEGATIVE)
== END 2020-08-20 11:48 | disposition home or self-care (01) ==
LOC: RAD 11:52
PROVIDERS: PCP Family Medicine; Visit Provider Internal Medicine Rheumatology
DX: M06.9 Rheumatoid arthritis, unspecified (principal); Z79.899 Other long term (current) drug therapy; Z11.59 Encounter for screening for other viral diseases; Z11.1 Encounter for screening for respiratory tuberculosis
CPT/HCPCS: 36415; 71046; 73130; 80076; 82565; 85025; 86140; 86480; 86704; 86803; 87340